=== PATIENT | female | born 1955 | race Caucasian/White ===

== ENCOUNTER 2018-05-19 05:50 | Outpatient (CLI) | payer BC ==
[~2018-05-19] VITALS: Ht 162.6 cm; Wt 86.2 kg
[2018-05-19] MEDS ORDERED: APIX5TAB PO (09:35)
[2018-05-19] MEDS ORDERED: BUTA1CAP17 PO (09:35)
[2018-05-19] MEDS ORDERED: CYCL10TA9 PO (09:35)
[2018-05-19] MEDS ORDERED: METO50TA15 PO (09:35)
[2018-05-19] MEDS ORDERED: [UNRECOGNIZED DRUG - CODE] PO (09:35)
== END 2018-05-19 09:45 | disposition home or self-care (01) ==
LOC: PREOP 05:50
PROVIDERS: ATTEND Otolaryngology Otolaryngology/Facial Plastic Surgery
DX: Z01.818 Encounter for other preprocedural examination (principal)

== ENCOUNTER 2018-05-21 07:51 | Day surgery (SDC) | payer BC, OTHER ==
[~2018-05-21] VITALS: Ht 162.6 cm; Wt 86.2 kg
[~2018-05-21 07:51] MED LIST: APIX5TAB PO; BUTA1CAP17 PO; CYCL10TA9 PO; METO50TA15 PO; [UNRECOGNIZED DRUG - CODE] PO
[2018-05-21] MEDS ORDERED: LIDOCAINE PF 2% 2 ML (XYLOCAINE) VIAL ONE (08:14)
[2018-05-21] MEDS ORDERED: fentaNYL INJECTION 100 MCG/2 ML AMP ONE (08:14)
[2018-05-21] MEDS ORDERED: MIDAZOLAM 2 MG/2 ML (VERSED) VIAL ONE (08:14)
[2018-05-21] MEDS ORDERED: ONDANSETRON 4 MG/2 ML (SDV) Z0FRAN ONE (08:14)
[2018-05-21] MEDS ORDERED: proPOfol 200 MG/20 ML (DIPRIVAN) VIAL IV ONE (08:14)
[2018-05-21] MEDS ORDERED: DEXAMETHASONE 10 MG/ML (DECADRON) 1 ML VIAL ONE (08:14)
[2018-05-21] MEDS ORDERED: LIDOCAINE/EPI 1%-1:200,000 (XYLOCAINE) 10 ML VIAL ONE (08:17)
[2018-05-21 08:19] LABS: BASOPHILS % (AUTO) 0 % (0-10); EOSINOPHILS # (AUTO) 0.1 10^3/uL (0.0-0.3); EOSINOPHILS % (AUTO) 2 % (0-10); HEMATOCRIT 43 % (35-52); HEMOGLOBIN 14.6 G/DL (11.5-16.0); LYMPHOCYTES # (AUTO) 3.1 X 10^3 (1.0-4.0); LYMPHOCYTES % (AUTO) 49 % (12-44); MEAN CORPUSCULAR HEMOGLOBIN 30 PG (25-34); MEAN CORPUSCULAR HGB CONC 34 G/DL (32-36); MEAN CORPUSCULAR VOLUME 88 FL (80-99); MEAN PLATELET VOLUME 10.5 FL (7.4-10.4); MONOCYTES # (AUTO) 0.6 X 10^3 (0.0-1.0); MONOCYTES % (AUTO) 10 % (0-12); NEUTROPHILS # (AUTO) 2.5 X 10^3 (1.8-7.8); NEUTROPHILS % (AUTO) 40 % (42-75); PLATELET COUNT 207 10^3/uL (130-400); RED BLOOD COUNT 4.94 10^6/uL (4.35-5.85); RED CELL DISTRIBUTION WIDTH 13.3 % (10.0-14.5); WHITE BLOOD COUNT 6.4 10^3/uL (4.3-11.0)
[2018-05-21] MEDS ORDERED: SEVOFLURANE (ULTANE) 15 ML INHAL SOLN ONE (08:29)
[2018-05-21 08:34] LABS: CALCIUM 9.5 MG/DL (8.5-10.1); CREATININE SERUM 0.99 MG/DL (0.60-1.30); POTASSIUM 4.4 MMOL/L (3.6-5.0)
[2018-05-21] MEDS ORDERED: LACTATED RINGERS 1,000 ML IV PRN (08:40)
[2018-05-21 08:47] VITALS: BP 129/95
--- NOTE | 2018-05-21 09:44 | Progress Note-Pre Operative ---
Pre-Operative Progress Note H&P Reviewed The H&P was reviewed, patient examined and no changes noted. Date Seen by Provider: May 21, 2018 Time Seen by Provider: : Date H&P Reviewed: May 21, 2018 Time H&P Reviewed: :30 Pre-Operative Diagnosis: Right Posterior Cervicl Lymphadenopathy JEREMY SAPP MD May 21, 2018 9:44 am
--- NOTE | 2018-05-21 10:38 | Progress Note-Post Operative ---
Post-Operative Progess Note Surgeon (s)/Grill Chef (s) Surgeon JEREMY SAPP MD Grill Chef n/a Pre-Operative Diagnosis Right Posterior Cervicl Lymphadenopathy Post-Operative Diagnosis same Post-Op Procedure Note Date of Procedure: May 21, 2018 Name of Procedure Performed: Excisional Biopsy of Right Posterior Cervical Lymph Nodes Description & Findings Description and Findings: n/a Anesthesia Type lma Estimated Blood Loss minimal Packing none. Specimen(s) collected/removed lymph node fresh to patho to be treated as poss lymphoma JEREMY SAPP MD May 21, 2018 10:38 am
[2018-05-21] MEDS ORDERED: ACETAMINOPHEN 325 MG TABLET PO PRN (10:45)
[2018-05-21] MEDS ORDERED: fentaNYL INJECTION 100 MCG/2 ML AMP IVP ONE (11:00)
[2018-05-21] MEDS ORDERED: ONDANSETRON 4 MG/2 ML (SDV) Z0FRAN IVP PRN (11:00)
[2018-05-21 11:35] VITALS: BP 124/70
[2018-05-21] MEDS ORDERED: TRAM50TA2 PO (11:42)
--- NOTE | 2018-05-21 11:56 | Anesthesia-General Post-Op ---
General Patient Condition Mental Status/LOC: Same as Preop Cardiovascular: Satisfactory Nausea/Vomiting: Absent Respiratory: Satisfactory Pain: Controlled Complications: Absent Post Op Complications Complications None Follow Up Care/Instructions Patient Instructions None needed. Anesthesia/Patient Condition Patient Condition Patient is doing well, no complaints, stable vital signs, no apparent adverse anesthesia problems. No complications reported per nursing. CHALO PURI CRNA May 21, 2018 11:56
[2018-05-21 12:05] VITALS: BP 119/75
[2018-05-21 12:35] VITALS: BP 132/81
[2018-05-21 12:40] VITALS: BP 132/81
== END 2018-05-21 12:40 | disposition home or self-care (01) ==
LOC: SDC 07:51
PROVIDERS: ATTEND Otolaryngology Otolaryngology/Facial Plastic Surgery
DX: R59.0 Localized enlarged lymph nodes (principal); I10 Essential (primary) hypertension; I48.91 Unspecified atrial fibrillation; Z79.01 Long term (current) use of anticoagulants; Z79.82 Long term (current) use of aspirin; Z79.899 Other long term (current) drug therapy
CPT/HCPCS: 36415; 80048; 85025; 87081

== ENCOUNTER 2020-09-18 14:34 | Emergency (ER) | payer BC, OTHER ==
[~2020-09-18] VITALS: Ht 65 cm; Wt 68.0 kg
[~2020-09-18 14:34] MED LIST changes: +AMLO-167 PO; +TRM50T PO; -[UNRECOGNIZED DRUG - CODE] PO
--- NOTE | 2020-09-18 14:57 | ED Integumentary General ---
General Chief Complaint: Allergic Reaction Stated Complaint: ALLERGIC REACTION Nursing Triage Note: pt started having an allergic reaction on bilateral arms, neck, and in hair with blister nodules and redness. Pt states she feels like her lips are starting to swell. Denies hard time breathing. Source: patient Exam Limitations: no limitations History of Present Illness Date Seen by Provider: Sep 18, 2020 Time Seen by Provider: 14:53 Initial Comments To ER with reports of allergic reaction. Last night she had some abdominal cramping for which she took a Gaviscon that she has had before without difficulty. This morning she awakened with some hives on her arms. 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 She states this is very itchy. She notices a sore to the left side of the inside of her cheek. The abdominal symptoms have subsided today. No history of this. Timing/Duration: constant Severity: moderate Location: torso, extremities Possible Cause: no cause identified Associated Symptoms: denies symptoms Allergies and Home Medications Allergies Coded Allergies: codeine (Unverified Allergy, Mild, 02/27/09) Uncoded Allergies: TAPE (Allergy, Mild, 02/28/09) Home Medications Amlodipine Besylate/Benazepril 1 Each Capsule, 1 EACH PO DAILY, (Reported) Apixaban 5 Mg Tablet, 5 MG PO BID, (Reported) Butalbital/Aspirin/Caffeine 1 Each Capsule, 1 EACH PO UD PRN for MIGRAINE, (Reported) Cyclobenzaprine HCl 10 Mg Tablet, 10 MG PO DAILY, (Reported) Metoprolol Tartrate 50 Mg Tablet, 50 MG PO BID, (Reported) Tramadol HCl 50 Mg Tablet, 50 MG PO TID Prescribed by: KATHLEEN CLAY on 05/21/18 1142 Patient Home Medication List Home Medication List Reviewed: Yes Review of Systems Review of Systems Constitutional: see HPI EENTM: see HPI Respiratory: no symptoms reported Cardiovascular: no symptoms reported Genitourinary: no symptoms reported Musculoskeletal: no symptoms reported Skin: no symptoms reported Psychiatric/Neurological: No Symptoms Reported Endocrine: No Symptoms Reported Past Csmkhyw-Ykkzic-Tdfxhy Hx Patient Social History Former Smoker, Quit: Aug 31, 1987 Recent Infectious Disease Expo: No Recent Hopitalizations: No Seasonal Allergies Seasonal Allergies: No Past Medical History Gallbladder, Hysterectomy, Tonsillectomy Atrial Fibrillation, Hypertension Headaches /Migraines Reproductive Disorders: No Sexually Transmitted Disease: No Ulcer Adverse Reaction/Blood Tranf: No Physical Exam Vital Signs Vital Signs - First Documented 09/18/20 14:39 Temp 37.0 Pulse 81 B/P (MAP) 158/99 (118) O2 Delivery Room Air Capillary Refill : Less Than 3 Seconds General Appearance: WD/WN, no apparent distress HEENT: PERRL/EOMI, normal ENT inspection Neck: non-tender, full range of motion Respiratory: no respiratory distress, no accessory muscle use Neurologic/Psychiatric: alert, normal mood/affect, oriented x 3 Skin: normal color, warm/dry Skin Problem Character: urticarial Progress/Results/Core Measures Results/Orders Lab Results Laboratory Tests Test 09/18/20 14:54 Range/Units White Blood Count 8.2 4.3-11.0 10^3/uL Red Blood Count 5.18 H 3.80-5.11 10^6/uL Hemoglobin 14.0 11.5-16.0 g/dL Hematocrit 45 35-52 % Mean Corpuscular Volume 86 80-99 fL Mean Corpuscular Hemoglobin 27 25-34 pg Mean Corpuscular Hemoglobin Concent 31 L 32-36 g/dL Red Cell Distribution Width 13.3 10.0-14.5 % Platelet Count 190 130-400 10^3/uL Mean Platelet Volume 11.5 9.0-12.2 fL Immature Granulocyte % (Auto) 0 % Neutrophils (%) (Auto) 55 42-75 % Lymphocytes (%) (Auto) 29 12-44 % Monocytes (%) (Auto) 15 H 0-12 % Eosinophils (%) (Auto) 0 0-10 % Basophils (%) (Auto) 0 0-10 % Neutrophils # (Auto) 4.5 1.8-7.8 X 10^3 Lymphocytes # (Auto) 2.4 1.0-4.0 X 10^3 Monocytes # (Auto) 1.2 H 0.0-1.0 X 10^3 Eosinophils # (Auto) 0.0 0.0-0.3 10^3/uL Basophils # (Auto) 0.0 0.0-0.1 10^3/uL Immature Granulocyte # (Auto) 0.0 0.0-0.1 10^3/uL Sodium Level 140 135-145 MMOL/L Potassium Level 4.2 3.6-5.0 MMOL/L Chloride Level 107 98-107 MMOL/L Carbon Dioxide Level 23 21-32 MMOL/L Anion Gap 10 5-14 MMOL/L Blood Urea Nitrogen 13 7-18 MG/DL Creatinine 0.80 0.60-1.30 MG/DL Estimat Glomerular Filtration Rate > 60 BUN/Creatinine Ratio 16 Glucose Level 77 70-105 MG/DL Calcium Level 9.3 8.5-10.1 MG/DL My Orders Orders - SUNNY SAUL APRN Cbc With Automated Diff (09/18/20 14:51) Basic Metabolic Panel (09/18/20 14:51) Ed Iv/Invasive Line Start (09/18/20 14:51) Famotidine Injection (Pepcid Injection) (09/18/20 15:00) Loratadine Tablet (Claritin Tablet) (09/18/20 15:00) Diphenhydramine Injection (Benadryl Inje (09/18/20 15:00) Methylprednisolone Sod Succ (Solu-Medrol (09/18/20 15:00) Medications Given in ED Current Medications Medications Dose Ordered Sig/Jose Route Start Time Stop Time Status Last Admin Dose Admin Diphenhydramine HCl 25 mg ONCE ONCE IVP 09/18/20 15:00 09/18/20 15:01 DC 09/18/20 14:58 25 MG Famotidine 20 mg ONCE ONCE IVP 09/18/20 15:00 09/18/20 15:01 DC 09/18/20 14:59 20 MG Loratadine 10 mg ONCE ONCE PO 09/18/20 15:00 09/18/20 15:01 DC 09/18/20 15:08 10 MG Methylprednisolone Sodium Succinate 125 mg ONCE ONCE IVP 09/18/20 15:00 09/18/20 15:01 DC 09/18/20 14:59 125 MG Vital Signs/I&O 09/18/20 14:39 Temp 37.0 Pulse 81 B/P (MAP) 158/99 (118) O2 Delivery Room Air Blood Pressure Mean: 118 Departure Communication (Admissions) 1049-patient's hives are looking better and she feels better. I will discharge to home on prednisone, continued Benadryl Pepcid and Zyrtec. Impression Primary Impression: Urticaria Disposition: HOME, SELF-CARE Condition: Stable Departure-Patient Inst. Decision time for Depature: 15:50 Referrals: PHOEBE LOZOYA DO (PCP/Family) Primary Care Physician Patient Instructions: Lam (GEETA) Add. Discharge Instructions: 1. Take Benadryl every 6 hours for the next 24 hours. Take a Zyrtec over-the- counter once a day for the next 3 days as well as the steroids for the next 3 days. Return to ER for any worsening. Follow-up with your doctor this week for recheck. All discharge instructions reviewed with patient and/or family. Voiced understanding. Scripts Famotidine (Pepcid) 20 Mg Tablet 20 MG PO DAILY, #5 TAB Prov: SUNNY SAUL APRN 09/18/20 Prednisone (Prednisone) 20 Mg Tab 40 MG PO DAILY, #6 TAB 0 Refills Prov: SUNNY SAUL APRN 09/18/20 SUNNY SAUL APRN Sep 18, 2020 14:57
[2020-09-18] MEDS ORDERED: methylPREDNISolone 125 MG (Solu-MEDROL) VIAL IVP ONE (15:00)
[2020-09-18] MEDS ORDERED: LORATADINE (CLARITIN) 10 MG TAB PO ONE (15:00)
[2020-09-18] MEDS ORDERED: FAMOTIDINE 20MG/2ML IV (PEPCID) IVP ONE (15:00)
[2020-09-18] MEDS ORDERED: diphenhydrAMINE 50 MG/ML INJ (BENADRYL) IVP ONE (15:00)
[2020-09-18 15:01] LABS: BASOPHILS % (AUTO) 0 % (0-10); EOSINOPHILS % (AUTO) 0 % (0-10); HEMATOCRIT 45 % (35-52); LYMPHOCYTES # (AUTO) 2.4 X 10^3 (1.0-4.0); LYMPHOCYTES % (AUTO) 29 % (12-44); MEAN CORPUSCULAR HEMOGLOBIN 27 pg (25-34); MEAN CORPUSCULAR HGB CONC 31 g/dL (32-36); MEAN CORPUSCULAR VOLUME 86 fL (80-99); MEAN PLATELET VOLUME 11.5 fL (9.0-12.2); MONOCYTES # (AUTO) 1.2 X 10^3 (0.0-1.0); MONOCYTES % (AUTO) 15 % (0-12); NEUTROPHILS # (AUTO) 4.5 X 10^3 (1.8-7.8); NEUTROPHILS % (AUTO) 55 % (42-75); PLATELET COUNT 190 10^3/uL (130-400); WHITE BLOOD COUNT 8.2 10^3/uL (4.3-11.0)
[2020-09-18 15:14] LABS: CHLORIDE 107 MMOL/L (98-107); POTASSIUM 4.2 MMOL/L (3.6-5.0); SODIUM 140 MMOL/L (135-145)
[2020-09-18 15:15] LABS: CALCIUM 9.3 MG/DL (8.5-10.1); GLUCOSE 77 MG/DL (70-105)
[2020-09-18 15:17] LABS: CARBON DIOXIDE 23 MMOL/L (21-32)
[2020-09-18 15:19] LABS: GFR ESTIMATED > 60
[2020-09-18 15:20] LABS: BUN/CREATININE RATIO 16
[2020-09-18] MEDS ORDERED: PRD20T PO (15:53)
[2020-09-18] MEDS ORDERED: FAMO-119 PO (15:53)
[2020-09-18 16:05] VITALS: BP 144/89
== END 2020-09-18 16:05 | disposition home or self-care (01) ==
LOC: EDUNIT# 14:34 → ER 14:36
DX: L50.9 Urticaria, unspecified (principal); I48.91 Unspecified atrial fibrillation; I10 Essential (primary) hypertension; Z88.5 Allergy status to narcotic agent; Z87.891 Personal history of nicotine dependence; Z79.01 Long term (current) use of anticoagulants
CPT/HCPCS: 36415; 80048; 85025

== ENCOUNTER 2020-10-31 05:34 | Outpatient (RCR) | payer BC, OTHER ==
[~2020-10-31] VITALS: Ht 162.6 cm; Wt 68.0 kg
[~2020-10-31 05:34] MED LIST changes: +AMLO1CAP2 PO; +ATOR20TA49 PO; +FAMO-119 PO; +IBRU420T PO; +PRD20T PO; +SOTA80TA62 PO
== END 2020-10-31 10:05 | disposition home or self-care (01) ==
LOC: PREOP 05:34
PROVIDERS: ATTEND Specialist
DX: Z01.812 Encounter for preprocedural laboratory examination (principal); H25.11 Age-related nuclear cataract, right eye; Z20.822 Contact with and (suspected) exposure to COVID-19
CPT/HCPCS: 87635

== ENCOUNTER 2020-11-02 06:05 | Day surgery (SDC) | payer BC, OTHER ==
[~2020-11-02] VITALS: Ht 162.6 cm; Wt 68.0 kg
[2020-11-02] MEDS ORDERED: LIDOCAINE PF 1% 2 ML VIAL IR PRN (06:15)
[2020-11-02] MEDS ORDERED: TIMOLOL MALEATE 0.5% 5 ML (TIMOPTIC) BTL OU PRN (06:15)
[2020-11-02] MEDS ORDERED: POVIDONE (BETADINE) OPHTH SOLN 5% 30 ML OP ONE (06:15)
[2020-11-02] MEDS ORDERED: MOXIFLOXACIN OPHTH SOLN 5 MG/ML 0.3 ML SYRINGE OP ONE (06:15)
[2020-11-02 06:20] VITALS: BP 146/86
[2020-11-02] MEDS: TETRACAINE 0.5% OPHTH SOLN 4 ML BTL (SINGLE DOSE ONLY) OU PRN ×4 (06:26→06:44)
[2020-11-02] MEDS: TROPICAMIDE 1% OPH SOLN (MYDRIACYL) 15 ML BTL OP SCH ×3 (06:32→06:44)
[2020-11-02] MEDS: PHENYLEPHRINE 10% OPHTH (NEO-SYN) 5 ML BTL OU SCH ×3 (06:33→06:44)
[2020-11-02] MEDS ORDERED: MIDAZOLAM 2 MG/2 ML (VERSED) VIAL ONE (06:55)
--- NOTE | 2020-11-02 07:24 | Ophthalmologist Pre-Op Note ---
Pre-Operative Progress Note H&P Reviewed The H&P was reviewed, patient examined and no changes noted. Date H&P Reviewed: Nov 02, 2020 Time H&P Reviewed: 07:24 Pre-Op Dx Cataract, Right Eye STEVE ZAMUDIO MD Nov 02, 2020 07:24
[2020-11-02] MEDS ORDERED: acetaZOLAMIDE ER 500 MG CAP (DIAMOX SEQUELS) PO ONE (07:45)
--- NOTE | 2020-11-02 07:47 | Ophthalmology Operative Report ---
Cataract removal/placement IOL PREOPERATIVE DIAGNOSIS: Cataract Right Eye POSTOPERATIVE DIAGNOSIS: Cataract Right Eye PROCEDURE: Cataract removal and placement of posterior chamber implant, right eye SURGEON: Mele Zamudio ANESTHESIA: Topical with sedation COMPLICATIONS: None ESTIMATED BLOOD LOSS: Minimal DESCRIPTION OF PROCEDURE: After proper informed consent was obtained, the patient, a 65 female, was taken to the Operating Room and the right eye was anesthetized with tetracaine. The right eye was then prepped and draped in the usual manner. A wire lid speculum was placed. A paracentesis was made at the left hand position. Preservative free lidocaine was injected into the anterior chamber followed by viscoelastic. A clear corneal incision was made in the temporal position. A capsulorrhexis was preformed and the central nuclear and cortical material were removed. The posterior capsule was polished and Mohinder 18.5 AU00T0 IOL was placed into the capsular bag. The residual viscoelastic was aspirated and balanced saline solution was injected into the anterior chamber. Moxifloxacin was injected into the anterior chamber. The wound was checked and found to be water tight. The patient tolerated the procedure well without complications. MELE ZAMUDIO MD Nov 02, 2020 07:47
[2020-11-02 08:00] VITALS: BP 143/91
--- NOTE | 2020-11-02 10:24 | Anesthesia-General Post-Op ---
MAC Patient Condition Mental Status/LOC: Same as Preop Cardiovascular: Satisfactory Nausea/Vomiting: Absent Respiratory: Satisfactory Pain: Controlled Complications: Absent Post Op Complications Complications None Follow Up Care/Instructions Patient Instructions None needed. Anesthesiology Discharge Order Discharge Order Patient was seen this morning after the procedure and she was doing well, no complaints, stable vital signs, no apparent adverse anesthesia problems. BECCA ALVAREZ DO Nov 02, 2020 10:24
== END 2020-11-02 08:00 | disposition home or self-care (01) ==
LOC: SDC 06:05
PROVIDERS: ATTEND Specialist
DX: H25.11 Age-related nuclear cataract, right eye (principal); I10 Essential (primary) hypertension; G47.33 Obstructive sleep apnea (adult) (pediatric); I48.91 Unspecified atrial fibrillation; K21.9 Gastro-esophageal reflux disease without esophagitis; E78.00 Pure hypercholesterolemia, unspecified; Z79.899 Other long term (current) drug therapy; Z88.5 Allergy status to narcotic agent; Z91.048 Other nonmedicinal substance allergy status; Z87.891 Personal history of nicotine dependence; Z80.7 Family history of other malignant neoplasms of lymphoid, hematopoietic and related tissues
CPT/HCPCS: 66984; V2632

== ENCOUNTER 2020-11-23 06:08 | Day surgery (SDC) | payer BC, OTHER ==
[~2020-11-23] VITALS: Ht 162.6 cm; Wt 68.0 kg
[2020-11-23] MEDS ORDERED: POVIDONE (BETADINE) OPHTH SOLN 5% 30 ML OP ONE (06:15)
[2020-11-23] MEDS ORDERED: LIDOCAINE PF 1% 2 ML VIAL IR PRN (06:15)
[2020-11-23] MEDS ORDERED: MOXIFLOXACIN OPHTH SOLN 5 MG/ML 0.3 ML SYRINGE OP ONE (06:15)
[2020-11-23] MEDS ORDERED: TIMOLOL MALEATE 0.5% 5 ML (TIMOPTIC) BTL OU PRN (06:15)
[2020-11-23] MEDS: TETRACAINE 0.5% OPHTH SOLN 4 ML BTL (SINGLE DOSE ONLY) OU PRN ×4 (06:25→06:41)
[2020-11-23] MEDS: TROPICAMIDE 1% OPH SOLN (MYDRIACYL) 15 ML BTL OP SCH ×3 (06:31→06:41)
[2020-11-23] MEDS: PHENYLEPHRINE 10% OPHTH (NEO-SYN) 5 ML BTL OU SCH ×3 (06:31→06:41)
[2020-11-23 06:37] VITALS: BP 137/73
[2020-11-23] MEDS ORDERED: MIDAZOLAM 2 MG/2 ML (VERSED) VIAL ONE (07:05)
--- NOTE | 2020-11-23 07:21 | Ophthalmologist Pre-Op Note ---
Pre-Operative Progress Note H&P Reviewed The H&P was reviewed, patient examined and no changes noted. Date H&P Reviewed: Nov 23, 2020 Time H&P Reviewed: 07:21 Pre-Op Dx Cataract, Left Eye STEVE ZAMUDIO MD Nov 23, 2020 07:21
--- NOTE | 2020-11-23 07:46 | Ophthalmology Operative Report ---
Cataract removal/placement IOL PREOPERATIVE DIAGNOSIS: Cataract Left Eye POSTOPERATIVE DIAGNOSIS: Cataract Left Eye PROCEDURE: Cataract removal and placement of posterior chamber implant, left eye SURGEON: Mele Zamudio ANESTHESIA: Topical with sedation COMPLICATIONS: None ESTIMATED BLOOD LOSS: Minimal DESCRIPTION OF PROCEDURE: After proper informed consent was obtained, the patient, a 65 female, was taken to the Operating Room and the left eye was anesthetized with tetracaine. The left eye was then prepped and draped in the usual manner. A wire lid speculum was placed. A paracentesis was made at the left hand position. Preservative free lidocaine was injected into the anterior chamber followed by viscoelastic. A clear corneal incision was made in the temporal position. A capsulorrhexis was preformed and the central nuclear and cortical material were removed. The posterior capsule was polished and an Mohinder 17.5 AU00T0 was placed into the capsular bag. The residual viscoelastic was aspirated and balanced saline solution was injected into the anterior chamber. Moxifloxacin was injected into the anterior chamber. The wound was checked and found to be water tight. The patient tolerated the procedure well without complications. MELE ZAMUDIO MD Nov 23, 2020 07:45
[2020-11-23 07:53] VITALS: BP 152/90
[2020-11-23] MEDS ORDERED: acetaZOLAMIDE ER 500 MG CAP (DIAMOX SEQUELS) PO ONE (08:00)
--- NOTE | 2020-11-23 12:14 | Anesthesia-General Post-Op ---
MAC Patient Condition Mental Status/LOC: Same as Preop Cardiovascular: Satisfactory Nausea/Vomiting: Absent Respiratory: Satisfactory Pain: Controlled Complications: Absent Post Op Complications Complications None Follow Up Care/Instructions Patient Instructions None needed. Anesthesiology Discharge Order Discharge Order Patient is doing well, no complaints, stable vital signs, no apparent adverse anesthesia problems. No complications reported per nursing. WONG RAI CRNA Nov 23, 2020 12:14
== END 2020-11-23 07:53 | disposition home or self-care (01) ==
LOC: SDC 06:08
PROVIDERS: ATTEND Specialist
DX: H25.12 Age-related nuclear cataract, left eye (principal); I10 Essential (primary) hypertension; G47.33 Obstructive sleep apnea (adult) (pediatric); I48.91 Unspecified atrial fibrillation; E78.00 Pure hypercholesterolemia, unspecified; Z88.5 Allergy status to narcotic agent; Z91.048 Other nonmedicinal substance allergy status; Z79.01 Long term (current) use of anticoagulants; Z79.899 Other long term (current) drug therapy; Z79.82 Long term (current) use of aspirin; Z82.0 Family history of epilepsy and other diseases of the nervous system; Z87.891 Personal history of nicotine dependence; Z90.710 Acquired absence of both cervix and uterus; Z98.890 Other specified postprocedural states; Z90.89 Acquired absence of other organs; Z85.89 Personal history of malignant neoplasm of other organs and systems
CPT/HCPCS: 66984; V2632

== ENCOUNTER 2022-12-11 05:37 | Outpatient (CLI) | payer BC, OTHER ==
[~2022-12-11] VITALS: Ht 162.5 cm; Wt 85.0 kg
[~2022-12-11 05:37] MED LIST changes: +CYCL10TA25 PO; -CYCL10TA9 PO
[2022-12-11] MEDS ORDERED: ASPI-999 PO (15:29)
[2022-12-11] MEDS ORDERED: FURO-125 PO (15:33)
[2022-12-11] MEDS ORDERED: NF-SOT120T PO (15:33)
[2022-12-11] MEDS ORDERED: AFLI2SYR IJ (15:33)
[2022-12-11] MEDS ORDERED: PROC10TA10 PO (15:33)
[2022-12-11] MEDS ORDERED: CYCL1DRO10 OP (15:33)
== END 2022-12-15 12:59 | disposition home or self-care (01) ==
LOC: PREOP 05:37
PROVIDERS: ATTEND Specialist
DX: Z01.818 Encounter for other preprocedural examination (principal)

== ENCOUNTER 2022-12-19 08:12 | Day surgery (SDC) | payer BC, OTHER ==
[~2022-12-19] VITALS: Ht 162.5 cm; Wt 85.0 kg
[2022-12-19 08:00] VITALS: BP 124/81
[~2022-12-19 08:12] MED LIST changes: +AFLI2SYR IJ; +ASPI-999 PO; +CYCL1DRO10 OP; +FURO-125 PO; +NF-SOT120T PO; +PROC10TA10 PO
[2022-12-19] MEDS ORDERED: PHENYLEPHRINE 10% OPHTH (NEO-SYN) 5 ML BTL OU PRN (08:45)
[2022-12-19] MEDS ORDERED: TROPICAMIDE 1% OPH SOLN (MYDRIACYL) 15 ML BTL OU PRN (08:45)
[2022-12-19] MEDS ORDERED: TETRACAINE 0.5% OPHTH SOLN 4 ML BTL (SINGLE DOSE ONLY) OU PRN (08:45)
--- NOTE | 2022-12-19 09:23 | Ophthalmologist Pre-Op Note ---
Pre-Operative Progress Note H&P Reviewed The H&P was reviewed, patient examined and no changes noted. Date H&P Reviewed: Dec 19, 2022 Time H&P Reviewed: 09:16 Pre-Op Dx Secondary Cataract, Right Eye STEVE ZAMUDIO MD Dec 19, 2022 09:23
--- NOTE | 2022-12-19 09:24 | Ophthalmology Operative Report ---
YAG Capsulotomy PREOPERATIVE DIAGNOSIS: Secondary Cataract Right Eye POSTOPERATIVE DIAGNOSIS: Secondary Cataract Right Eye PROCEDURE: YAG Capsulotomy, right eye SURGEON: Mele Zamudio ANESTHESIA: Topical anesthesia COMPLICATIONS: None ESTIMATED BLOOD LOSS: Minimal DESCRIPTION OF PROCEDURE: After proper informed consent was obtained, the patient's, a 67 female, right eye received one drop of Tropicamide and one drop of Tetracaine. The patient was then placed at the YAG laser and using a power of [ 4.0] millijoules and [ 19] bursts were used to fashion a central capsulotomy. The patient tolerated the procedure well without complications. MELE ZAMUDIO MD Dec 19, 2022 09:24
== END 2022-12-19 09:05 | disposition home or self-care (01) ==
LOC: SDC 08:12
PROVIDERS: ATTEND Specialist
DX: H26.40 Unspecified secondary cataract (principal); Z87.891 Personal history of nicotine dependence